=== PATIENT | male | born 1990 | race Caucasian/White ===

== ENCOUNTER 2018-12-21 01:48 | Emergency (ER) | payer SELFPAY ==
[2018-12-21 01:52] VITALS: BP 126/84; PULSE 94; RESP 18; TEMP 36.4; O2SAT 98
--- NOTE | 2018-12-21 02:18 | ED.GENADUL_ITS ---
Discharge Plan Disposition Patient Disposition: HOME Condition: Good Discharge Details Chief Complaint: Laceration Clinical Impression: Open wound of skin Primary Care Provider: None,None ED Provider: Wei Montes Home Meds and New Rx's Prescriptions: New cephalexin [Keflex] 500 mg capsule 500 mg PO QID 7 Days Qty: 28 RF: 0 No Action No Known Home Meds RF: 0 Discharge Instructions Instructions: Cellulitis (ED), Acute Wound Care (ED) Additional Instructions: At this time there is no evidence of significant infection for his skin however out of precaution we will start you on an antibiotic to prevent any infection. Please keep the area covered at all times. Wash it twice daily with warm soap and water. Apply triple antibiotic ointment to it daily. Take the antibiotic as directed. If you notice any significant swelling, redness, worsening pain, please return immediately. If you notice any worsening of your symptoms, or any new symptoms such as vomiting, diarrhea, fever, chills, shortness of breath, chest pain, numbness, weakness, or fainting , please return immediately to the emergency department for reevaluation. Please follow up with your primary care provider as soon as possible for reassessment and reevaluation. As always, it was a pleasure participating in your medical care today. Medical Decision Making This is a 28-year-old male who presents for evaluation of right knee pain. Patient states that he has been doing a notable amount of marijuana, heroin, and has been drinking alcohol tonight. He was brought in for routine blood draw by police. However while here he was complaining of right knee pain and wanted to be assessed. He states that 3 to 4 days ago he was blowing glass when some of the glass popped, and a small amount of glass cut his anterior knee. He states that he took out sliver of glass at that time, but since then has had continued mild pain at the site and site is not been healing well. He has mild pain with movement of his knee. He denies any red flags of fever or chills. Physical exam demonstrates no significant redness, no strickland warmth. No redness traveling up or down his leg. Anterior lesion is roughly 1.5 to 2 cm in length, appears slightly ulcerated. Appears more like an ulcer and iatrogenic picking than a laceration at this time. The remainder of his neurovascular exam is unremarkable. No evidence of significant fluctuance or abscess. This time signs and symptoms appear consistent with a nonhealing wound. No evidence of severe warmth or redness suggesting septic arthritis. Patient is afebrile, no tachycardia. At this time there is no clinical indication to tap the knee as there is no significant effusion or area of fluctuance. We will get an x-ray to rule out retained foreign body. Out of an abundance of precaution and secondary to the patient's poor healing we will start him on Keflex antibiotics. First dose will be given here. 2:46 AM X-ray results show no evidence of radiopaque foreign body. We will clean and dress the wound. Give Keflex as well as a prescription. Tetanus is up-to-date. I have extensively reviewed the treatment plan and discharge instructions with the patient. I have addressed all patient concerns at this time. The patient w as made aware of what symptoms to monitor for that would warrant a return to the emergency department. Discussed the plan with the patient, they demonstrate verbal understanding and agreement with our assessment and plan at this time. FINDINGS: Bones/joints: Typical for age. No evidence of acute fracture. Soft tissues: Prepatellar soft tissue swelling. IMPRESSION: Soft tissue swelling. No evidence of radiopaque foreign body. Thank you for allowing us to participate in the care of your patient. Dictated and Authenticated by: Andi Hartley MD 12/21/2018 2:45 AM Eastern Time ([place] & [place]) HPI General Date/Time Provider Initiated Documentation: 12/21/18 01:56 . HPI Narrative: This is a 28-year-old male who is brought in by police for routine blood draw, however while here he is also complaining of right knee pain. He states that tonight he has been doing a significant amount of heroin, marijuana, there is also been drinking. He is a notably poor historian. However he does state that 3 days ago he is blowing glass, some cool air came in because the glass to shatter and a small amount hit his knee and cut it. He states that he did remove some glass at that time. And he believes it was all the glass of his there but since then cut has not been healing well, and he has had mild pain with movement of his right knee. He denies any other trauma. Tetanus is up-to-date. He denies fever or chills. Pain is made worse with movement and ambulation, improved with nothing. He denies any redness or new drainage. He has no other complaints at this time. He denies any other modifying factors. Related Data Home Medications Medication Instructions Recorded Confirmed Unknown [No Known Home Meds] 12/21/18 12/21/18 cephalexin [Keflex] 500 mg PO QID 7 Days #28 cap 12/21/18 Previous Rx's Medication Instructions Recorded cephalexin [Keflex] 500 mg PO QID 7 Days #28 cap 12/21/18 Allergies Allergy/AdvReac Type Severity Reaction Status Date / Time No Known Allergies Allergy Unverified 12/21/18 01:56 General Stated Complaint: Laceration MIKE: 4 Review of Systems All systems reviewed & are unremarkable except as noted in HPI and below PFSH Social History Smoking/Tobacco Use Status: Current every day Tobacco Type: cigarettes Alcohol Intake: never Drug use: Binges Substance use type: marijuana and heroin Do you feel safe at home: Yes Do you feel safe in your relationship?: Yes Exam Narrative Exam Narrative: 1.Const: Well-nourished, Well-developed, appearing stated age, but notably under the influence of illicit medication. 2.Eyes: PERRL, no conjunctival injection, and symmetrical lids. 3.ENT: Atraumatic external nose and ears. Moist MM. Neck: Symmetric, trachea midline, No thyromegaly. 4.CVS: +S1/S2, No murmurs or gallops. No tachycardia. Peripheral pulses 2+ and equal in all extremities. Brisk capillary refill in all extremities. 5.RESP: Unlabored respiratory effort. Clear to auscultation bilaterally. No wheezes rales or rhonchi 6.GI: Soft, Nontender/Nondistended, No hepatosplenomegaly. No guarding or rebound. 7.MSK: Normocephalic, Extremities w/o deformity. No cyanosis or clubbing. Patient is resting comfortably, mild pain with movement of the right knee, minimal effusion. No redness, no erythema, no significant warmth. There is evidence of a small notably superficial cut/abrasion over the anterior aspect of the knee appears slightly more ulcerated. No skin that can be reapproximated. Skin appears to be notably irritated by self picking. No purulent drainage. No redness in the thigh or tip/fib. Dorsalis pedis posterior tibial pulses +2 bilaterally. Normal sensation throughout. 8.Skin: Please see musculoskeletal 9.Neuro: brick tosser II-XII grossly intact. Sensation grossly intact, no focal neurologic deficits. 10.Psych: (AAO) x3. Appropriate mood and affect Course Vital Signs Vital signs: Vital Signs Temperature 36.4 C 12/21/18 01:52 Pulse 94 H 12/21/18 01:52 Respiratory Rate 18 12/21/18 01:52 Blood Pressure 126/84 12/21/18 01:52 Pulse Oximetry 98 12/21/18 01:52 Temperature 36.4 C 12/21/18 01:52 Temperature Source Skin 12/21/18 01:52 Pulse 94 H 12/21/18 01:52 Respiratory Rate 18 12/21/18 01:52 Respiratory Effort 12/21/18 01:56 Blood Pressure 126/84 12/21/18 01:52 Blood Pressure Position Sitting 12/21/18 01:52 Pulse Oximetry 98 12/21/18 01:52 Oxygen Delivery Method Room Air 12/21/18 01:52 Oxygen Flow Rate 0 12/21/18 01:52
--- NOTE | 2018-12-21 02:35 | DI.RAD_ITS ---
EXAM: XR KNEE RT 3V AP,LAT,NICK INDICATION: knee pain with cut, r/o foreign body. COMPARISON: No exams were available for comparison TECHNIQUE: 2D digital imaging was performed. FINDINGS: There is prepatellar soft tissue swelling. There is no evidence of fracture. The exam is limited by the patient's pants somewhat obscuring the distal femur and portion of the patella. Joint spaces are well maintained. No joint effusion is visible. IMPRESSION: Prepatellar soft tissue swelling.
[2018-12-21] MEDS: Cephalexin 500 MG CAP PO (02:45)
--- NOTE | 2018-12-21 02:46 | DI.VRAD_ITS ---
PROCEDURE INFORMATION: Exam: XR Right Knee Exam date and time: 12/21/2018 2:33 AM Clinical history: 28 years old, male; Patient HX: Right knee pain with cut, R/O fb TECHNIQUE: Imaging protocol: XR Right knee. Views: 3 views. COMPARISON: No relevant prior studies available. FINDINGS: Bones/joints: Typical for age. No evidence of acute fracture. Soft tissues: Prepatellar soft tissue swelling. IMPRESSION: Soft tissue swelling. No evidence of radiopaque foreign body. Dictated and Authenticated by: Andi Hartley MD. Ordering:JENIFER Carvajal MD
== END 2018-12-21 02:50 | disposition home or self-care (01) ==
PROVIDERS: Emergency Provider Student in an Organized Health Care Education/Training Program
DX: S81.011A Laceration without foreign body, right knee, initial encounter (principal); F19.10 Other psychoactive substance abuse, uncomplicated; W25.XXXA Contact with sharp glass, initial encounter
CPT/HCPCS: 36415; 73562; 99285; 99284